=== PATIENT | male | born 1955 | race Caucasian/White ===

== ENCOUNTER 2021-05-02 08:45 | Outpatient (CLI) | payer OTHER, SELFPAY ==
--- NOTE | ~2021-05-02 | CT_ITS ---
EXAMINATION: CT lung screening DATE: 05/02/2021 09:14 INDICATION: Personal history of nicotine dependence, prior smoker with 30 pack year history TECHNIQUE: Computed tomography (CT) of the chest was performed without intravenous contrast. The dose -length product (DLP) was 221.66 mGy-cm. Automated exposure control and iterative reconstruction tech [employer] were employed. COMPARISON: 05/08/2018 FINDINGS: There is severe emphysema. There are multiple stable calcified and noncalcified nodules thr oughout the lungs. No definite new pulmonary nodules are identified. There has been interval developm ent of atelectasis/scarring in the lateral aspect of the left upper lobe. There is no pleural effusio n or pneumothorax. No pathologically enlarged thoracic lymph nodes are identified. The heart size is normal. Subendocardial fat deposition in the left ventricular apex is consistent with prior myocardia l infarction. There is moderate thoracic spondylosis. IMPRESSION: 1. Lung-RADS category 2: Benign appearance or behavior. Continue annual screening with noncontrast lo w-dose chest CT in 12 months. Reviewed, dictated and finalized at location A. IMPRESSION: 1. Lung-RADS category 2: Benign appearance or behavior. Continue annual screeni ng with noncontrast low-dose chest CT in 12 months.
== END 2021-05-02 08:46 | disposition home or self-care (01) ==
PROVIDERS: PCP Student in an Organized Health Care Education/Training Program; Visit Provider Nurse Practitioner Family
DX: Z87.891 Personal history of nicotine dependence (principal)
CPT/HCPCS: 71271

== ENCOUNTER 2021-12-28 11:52 | Outpatient (CLI) | payer OTHER, SELFPAY ==
--- NOTE | ~2021-12-28 | MM_ITS ---
MM diagnostic mammo unilat LT 12/28/2021 12:18 Indication: Left breast enlargement with weight gain Procedure: Digital diagnostic left mammogram with comparison right MLO view. CAD analysis performed a nd interpreted. Comparison: No prior studies for comparison. Findings: There is bilateral symmetric gynecomastia. No suspicious masses, calcifications or architec tural distortion to suggest malignancy. Impression: 1: No mammographic evidence for malignancy. Recommend follow-up clinical management for gynecomastia. BI-RADS CATEGORY 1 - NEGATIVE Reviewed, dictated and finalized at location A. Impression: 1: No mammographic evidence for malignancy. Recommend follow-up clinical manage ment for gynecomastia. BI-RADS CATEGORY 1 - NEGATIVE
== END 2021-12-28 11:53 | disposition home or self-care (01) ==
PROVIDERS: PCP Student in an Organized Health Care Education/Training Program; Visit Provider Student in an Organized Health Care Education/Training Program
DX: D24.2 Benign neoplasm of left breast (principal)
CPT/HCPCS: 77065

== ENCOUNTER 2022-05-13 16:14 | Outpatient (CLI) | payer OTHER, SELFPAY ==
--- NOTE | ~2022-05-13 | CT_ITS ---
EXAMINATION: CT lung screening DATE: 05/13/2022 16:36 INDICATION: Lung cancer screening TECHNIQUE: Computed tomography (CT) of the chest was performed without intravenous contrast. The dose -length product was 178.75 mGy-cm. Automated exposure control and iterative reconstruction technique were employed. COMPARISON: CT dated 05/02/2021 FINDINGS: Heart size normal. No significant pleural or pericardial effusion. Calcified granuloma in t he spleen. Small subcentimeter hypodensity left hepatic lobe, most likely benign. No thoracic lymphad enopathy. There is atherosclerosis. There is chronic scarring of the left upper lobe. Severe emphysem a. No endobronchial lesions. There are no calcified granulomas of the lungs. Stable 5 mm fissural nod ule on the right. Stable 4 mm right upper lobe nodule, image 62. There are a few smaller 1-2 mm nodul es in both lungs. No endobronchial lesions. Mild thoracic spondylosis. IMPRESSION: 1. Lung-RADS category 2: Benign appearance or behavior. Continue annual screening with noncontrast lo w-dose chest CT in 12 months. Reviewed, dictated and finalized at location B. IMPRESSION: 1. Lung-RADS category 2: Benign appearance or behavior. Continue annual screeni ng with noncontrast low-dose chest CT in 12 months.
== END 2022-05-13 16:15 | disposition home or self-care (01) ==
PROVIDERS: PCP Student in an Organized Health Care Education/Training Program; Visit Provider Physician Assistant
DX: Z12.2 Encounter for screening for malignant neoplasm of respiratory organs (principal); Z87.891 Personal history of nicotine dependence
CPT/HCPCS: 71271

== ENCOUNTER 2023-05-15 09:58 | Outpatient (CLI) | payer OTHER, SELFPAY ==
--- NOTE | ~2023-05-15 | CT_ITS ---
CT Scan of the Chest without Contrast: Clinical Indication: Lung cancer screening, personal history of nicotine dependence Technique: Contiguous sections were acquired throughout the chest without intravenous contrast. Dose reduction technique was used on this scan by utilizing automated exposure control and iterative recon struction technique. The dose-length product (DLP) was 183.01 mGy-cm. COMPARISON: 05/13/2022, 05/02/2021 Findings: There is no evidence of any significant mediastinal, hilar or axillary lymphadenopathy. There are ath erosclerotic calcifications of the aorta. There is no evidence of pleural or pericardial effusion. There is severe emphysema with stable left apical scarring. Stable 5 mm right upper lobe pulmonary no dule (axial image 65). Stable additional 5-6 mm right upper lobe pulmonary nodule (axial image 83). S table 3 mm right middle lobe pulmonary nodule (axial image 103). Stable calcified granulomas. Images through the upper abdomen reveal no abnormalities. Impression: Lung RADS 2: Benign appearance. 12 month follow-up screening CT advised. Severe emphysema with stable left upper lobe scarring. Reviewed, dictated and finalized at location . Impression: Lung RADS 2: Benign appearance. 12 month follow-up screening CT advised. Severe emphysema with stable left upper lobe scarring.
== END 2023-05-15 09:59 | disposition home or self-care (01) ==
PROVIDERS: PCP Student in an Organized Health Care Education/Training Program; Visit Provider Physician Assistant
DX: Z12.2 Encounter for screening for malignant neoplasm of respiratory organs (principal); Z87.891 Personal history of nicotine dependence; J43.9 Emphysema, unspecified
CPT/HCPCS: 71271

== ENCOUNTER 2024-05-18 14:59 | Outpatient (CLI) | payer OTHER, SELFPAY ==
--- NOTE | ~2024-05-18 | CT_ITS ---
CT Scan of the Chest without Contrast: Clinical Indication: Lung cancer screening, nicotine dependence Technique: Contiguous sections were acquired throughout the chest without intravenous contrast. Dose reduction technique was used on this scan by utilizing automated exposure control and iterative recon struction technique. The dose-length product (DLP) was 174.33 mGy-cm. COMPARISON: 05/15/2023 Findings: There is no evidence of any significant mediastinal, hilar or axillary lymphadenopathy. There are ath erosclerotic calcifications of the aorta and coronary arteries. There is no evidence of pleural or pericardial effusion. There is severe emphysema. Calcified right upper and lower lobe granulomas are present. There is stab le irregular consolidation and volume loss in the left upper lobe, suggestive of posttreatment change s or chronic postinflammatory scarring. Stable 5 mm right upper lobe pulmonary nodule anteriorly (axi al image 64). Stable 6 mm right upper lobe pulmonary nodule (axial image 82). Stable 3 mm right middl e lobe pulmonary nodule (axial image 102). Images through the upper abdomen reveal no abnormalities. Impression: Lung RADS 2: Benign appearance. 12 month follow-up screening CT advised. Reviewed, dictated and finalized at location M. Impression: Lung RADS 2: Benign appearance. 12 month follow-up screening CT advised.
== END 2024-05-18 15:00 | disposition home or self-care (01) ==
PROVIDERS: PCP Student in an Organized Health Care Education/Training Program; Visit Provider Physician Assistant
DX: Z12.2 Encounter for screening for malignant neoplasm of respiratory organs (principal); Z87.891 Personal history of nicotine dependence
CPT/HCPCS: 71271

== ENCOUNTER 2025-06-09 14:30 | Outpatient (CLI) | payer OTHER, SELFPAY ==
--- NOTE | ~2025-06-09 | CT_ITS ---
CT lung screening INDICATION: Tobacco use. COMPARISON: 05/18/2024. TECHNIQUE: CT examination of the entire thorax without contrast was performed using low dose technique. Thin section axial, sagittal and coronal images were included to increase sensitivity for small lung nodules. FINDINGS: PULMONARY NODULES: No suspicious noncalcified pulmonary nodule seen. OTHER PULMONARY FINDINGS: There is persistent consolidation in the peripheral left upper lobe unchanged from previous study. Diffuse centrilobular emphysema noted. Calcified granulomas a stable. No pathologically enlarged lymph nodes are present. Normal heart size. UPPER ABDOMEN AND PERIPHERAL SOFT TISSUE: Limited views of the upper abdomen and peripheral soft tissue demonstrated no abnormalities. OSSEOUS STRUCTURES: Bone window shows no aggressive blastic or lytic lesions. IMPRESSION: 1. Lung-RADS category 2: Nodules with a very low likelihood of becoming a clinically active cancer due to size or lack of growth. Recommendations: 1 or 2: Annual screening with low-dose CT in 12 months. 2. Moderate emphysematous changes are present. All CT scans at this facility are performed using low dose modulation techniques as appropriate to perform exam including the following: automated exposure control; use of iterative reconstruction technique; adjustment of the mA and/or kV according to patient size (this includes techniques or standardized protocols for targeted exams where dose is matched to indication/reason for exam). Reviewed, dictated and finalized at location S. IMPRESSION: 1. Lung-RADS category 2: Nodules with a very low likelihood of becoming a clini licha active cancer due to size or lack of growth. Recommendations: 1 or 2: Annual screening with low-dose CT in 12 months. 2. Moderate emphysematous changes are present. All CT scans at this facility are performed using low dose modulation techniqu es as appropriate to perform exam including the following: automated exposure c ontrol; use of iterative reconstruction technique; adjustment of the mA and/or kV according to patient size (this includes techniques or standardized protocol s for targeted exams where dose is matched to indication/reason for exam).
== END 2025-06-09 14:31 | disposition home or self-care (01) ==
PROVIDERS: PCP Student in an Organized Health Care Education/Training Program; Visit Provider Physician Assistant
DX: Z12.2 Encounter for screening for malignant neoplasm of respiratory organs (principal); Z87.891 Personal history of nicotine dependence
CPT/HCPCS: 71271